=== PATIENT | female | born 1980 | race American Indian/Alaskan Native ===

== ENCOUNTER 2017-03-03 22:46 | Emergency (ER) | payer MEDICAID, OTHER ==
[~2017-03-03] VITALS: Ht 157.5 cm; Wt 83.6 kg
[~2017-03-03 22:46] MED LIST: AMOX1TAB64 PO; CEPH-376 PO; DULO60CA7 PO; LACT1CAP24 PO; OXYC-302 PO; OXYC5TAB3 PO; POLY17PO5 PO; PROP10TA PO
[2017-03-04] MEDS ORDERED: KETOROLAC 30 MG/1 ML ONE (00:54)
[2017-03-04] MEDS ORDERED: MORPHINE SULFATE 4 MG/ML, 1ML ONE (00:54)
[2017-03-04] MEDS ORDERED: KETOROLAC 30 MG/1 ML IVPush ONE (01:00)
[2017-03-04] MEDS ORDERED: SODIUM CHLORIDE FLUSH 10ML SYR IVF ONE (01:00)
[2017-03-04] MEDS ORDERED: MORPHINE SULFATE 4 MG/ML, 1ML IVPush PRN (01:00)
[2017-03-04 01:37] LABS: HCG UR OBC PASS
[2017-03-04 01:39] LABS: BLOOD UREA NITROGEN 8 mg/dL (7-18)
[2017-03-04 02:33] VITALS: BP 114/69
[2017-03-04] MEDS ORDERED: DOXYCYCLINE 100MG TABLET PO ONE (03:00)
== END 2017-03-04 03:34 | disposition home or self-care (01) ==
LOC: ED 23:59
DX: N64.4 Mastodynia (principal)
CPT/HCPCS: 36415; 76642; 80048; 81001; 81025; 82040; 85025; 87086; 96374; 96375; 99285; J1885

== ENCOUNTER 2017-05-25 12:55 | Observation (INO) | payer MEDICAID ==
[~2017-05-25] VITALS: Ht 157.5 cm; Wt 90.5 kg
[2017-05-25 13:36] LABS: HEMATOCRIT 41.2 % (34.6-47.8); HEMOGLOBIN 13.9 g/dL (11.7-16.4)
[2017-05-25] MEDS ORDERED: ONDANSETRON 2MG/ML, 2ML ONE ×2 (14:09→19:29)
[2017-05-25] MEDS ORDERED: MORPHINE SULFATE 4 MG/ML, 1ML ONE ×3 (14:09→17:41)
[2017-05-25] MEDS: MORPHINE SULFATE 4 MG/ML, 1ML IVPush PRN ×2 (14:18→15:13)
[2017-05-25] MEDS ORDERED: ONDANSETRON 2MG/ML, 2ML IVPush ONE (14:30)
[2017-05-25] MEDS ORDERED: SODIUM CHLORIDE FLUSH 10ML SYR IVF ONE (14:30)
[2017-05-25] MEDS ORDERED: CEFAZOLIN PMX 1GM/50ML 50 ML IV ONE (18:00)
[2017-05-25] MEDS ORDERED: morphine SULFATE 10 MG/ML, 1ML IVPush ONE ×2 (18:00)
[2017-05-25] MEDS ORDERED: CEFAZOLIN 1,000 MG ONE ×2 (18:04→19:29)
[2017-05-25] MEDS ORDERED: CEFAZOLIN PMX 1GM/50ML 50 ML ONE (18:05)
[2017-05-25] MEDS ORDERED: KETOROLAC 30 MG/1 ML ONE (19:29)
[2017-05-25] MEDS ORDERED: MIDAZOLAM 1 MG/ML, 2ML ONE (19:29)
[2017-05-25] MEDS ORDERED: PROPOFOL 10 MG/ML, 20ML ONE (19:29)
[2017-05-25] MEDS ORDERED: FENTANYL PF 100 MCG/2ML ONE ×3 (19:29→20:09)
[2017-05-25] MEDS ORDERED: OXYcodone 5 MG/5 ML ORAL.SOL UDC PO PRN (20:00)
[2017-05-25] MEDS ORDERED: LABETALOL 5MG/ML, 20ML IV PRN (20:00)
[2017-05-25] MEDS ORDERED: EPHEDRINE 50 MG/ML, 1ML IVPush PRN (20:00)
[2017-05-25] MEDS ORDERED: MEPERIDINE/PF 25MG/0.5ML IVPush PRN (20:00)
[2017-05-25] MEDS ORDERED: hydrALAzine 20 MG/ML, 1ML IV PRN (20:00)
[2017-05-25] MEDS ORDERED: METOPROLOL 1 MG/ML, 5ML IV PRN (20:00)
[2017-05-25] MEDS ORDERED: ACETAMINOPHEN 325 MG TABLET PO PRN ×2 (20:00→23:45)
[2017-05-25] MEDS ORDERED: ALBUTEROL SULFATE 2.5 MG/3 ML NPPB PRN (20:00)
[2017-05-25] MEDS ORDERED: ONDANSETRON 2MG/ML, 2ML IVPush PRN (20:00)
[2017-05-25] MEDS ORDERED: OXYcodone 5 MG/5 ML ORAL.SOL UDC ONE (20:09)
[2017-05-25] MEDS: FENTANYL PF 100 MCG/2ML IV PRN ×2 (20:10→20:22)
[2017-05-25] MEDS ORDERED: HYDROmorphone 1 MG/ML, 1ML ONE (20:30)
[2017-05-25] MEDS: HYDROmorphone 1 MG/ML, 1ML IV PRN ×3 (20:35→23:49)
[2017-05-25] MEDS ORDERED: ENALAPRILAT 1.25 MG/ML, 2ML IV PRN (23:45)
[2017-05-25] MEDS ORDERED: ONDANSETRON 2MG/ML, 2ML IV PRN (23:45)
[2017-05-25] MEDS ORDERED: LORazepam 1MG TABLET PO PRN (23:45)
[2017-05-25] MEDS ORDERED: ACETAMINOPHEN 650 MG SUPP PR PRN (23:45)
[2017-05-25] MEDS ORDERED: LORazepam 2 MG/ML, 1ML IV PRN (23:45)
[2017-05-25] MEDS ORDERED: DIPHENHYDRAMINE 25 MG CAPSULE PO PRN (23:45)
[2017-05-25] MEDS ORDERED: DIPHENHYDRAMINE 50 MG/ML, 1ML IV PRN (23:45)
[2017-05-26] VITALS: BP 129/85
[2017-05-26] MEDS: OXYcodone 5 MG/5 ML ORAL.SOL UDC PO PRN ×6 (00:27→22:06)
[2017-05-26 01:12] VITALS: BP 127/76
[2017-05-26] MEDS: HYDROmorphone 1 MG/ML, 1ML IV PRN ×7 (01:58→23:31)
[2017-05-26] MEDS ORDERED: CEFAZOLIN PMX 2GM/100ML 100 ML IVPB SCH (03:00)
[2017-05-26 05:44] LABS: HEMATOCRIT 40.5 % (34.6-47.8); HEMOGLOBIN 13.6 g/dL (11.7-16.4); WHITE BLOOD COUNT 10.2 x10^3/uL (3.4-10)
[2017-05-26] MEDS: HEPARIN 5,000 UNITS/ML, 1ML SQ SCH ×3 (06:07→22:00)
[2017-05-26 06:49] VITALS: BP 131/83
[2017-05-26] MEDS ORDERED: CEFAZOLIN PMX 2GM/50ML 50 ML IVPB SCH ×2 (10:00→11:00)
[2017-05-26] MEDS: KETOROLAC 30 MG/1 ML IV PRN ×2 (11:35→19:40)
[2017-05-26 13:47] VITALS: BP 119/79
[2017-05-26 19:55] VITALS: BP 135/68
[2017-05-27 01:50] VITALS: BP 116/74
[2017-05-27] MEDS: KETOROLAC 30 MG/1 ML IV PRN ×2 (02:37→09:08)
[2017-05-27] MEDS: HYDROmorphone 1 MG/ML, 1ML IV PRN ×3 (02:37→10:35)
[2017-05-27] MEDS: OXYcodone 5 MG/5 ML ORAL.SOL UDC PO PRN ×3 (04:04→15:06)
[2017-05-27] MEDS: HEPARIN 5,000 UNITS/ML, 1ML SQ SCH (04:58)
[2017-05-27] MEDS ORDERED: CEFAZOLIN PMX 2GM/50ML 50 ML IVPB SCH (06:00)
[2017-05-27 06:57] VITALS: BP 126/85
[2017-05-27] MEDS ORDERED: OXYC-302 PO (15:17)
[2017-05-27] MEDS ORDERED: CEPH-368 PO (15:17)
== END 2017-05-27 15:32 | disposition home or self-care (01) ==
LOC: ED 16:12 → SUATTDRO 18:04 → 3NE 22:42 → DCLOUNGE 05-27 15:10
PROVIDERS: ADMIT Surgery; ATTEND Surgery
DX: N61.1 Abscess of the breast and nipple (principal); N63 Unspecified lump in breast
CPT/HCPCS: 19020; 36415; 76642; 84703; 85025; 87070; 87075; 87176; 87205; 96365; 96366; 96372; 96375; 96376; 99285; G0378; J0690; J1170; J1644; J1885; J2250; J2270; J2405; J2704; J3010

== ENCOUNTER 2017-07-14 12:18 | Emergency (ER) | payer MEDICAID ==
[~2017-07-14] VITALS: Ht 157.5 cm; Wt 88.2 kg
[~2017-07-14 12:18] MED LIST changes: +CEPH-368 PO
[2017-07-14 12:43] VITALS: BP 133/56
[2017-07-14] MEDS ORDERED: OXYcodone/APAP 5/325MG TABLET PO ONE (13:00)
[2017-07-14 13:13] LABS: HEMATOCRIT 41.4 % (34.6-47.8); HEMOGLOBIN 13.9 g/dL (11.7-16.4); WHITE BLOOD COUNT 10.8 x10^3/uL (3.4-10)
[2017-07-14 13:23] LABS: BLOOD UREA NITROGEN 10 mg/dL (7-18)
[2017-07-14] MEDS ORDERED: OXYcodone/APAP 5/325MG TABLET ONE (13:39)
== END 2017-07-14 14:42 | disposition home or self-care (01) ==
LOC: ED 12:32
DX: R07.9 Chest pain, unspecified (principal); N61.1 Abscess of the breast and nipple
CPT/HCPCS: 36415; 80048; 82040; 85025; 87324; 89055; 99284

== ENCOUNTER 2017-09-03 20:46 | Emergency (ER) | payer MEDICAID ==
[~2017-09-03] VITALS: Ht 157.5 cm; Wt 84.1 kg
[2017-09-03 20:50] VITALS: BP 148/79
[2017-09-03] MEDS ORDERED: OXYcodone/APAP 5/325MG TABLET PO ONE (23:00)
[2017-09-03] MEDS ORDERED: OXYcodone/APAP 5/325MG TABLET ONE (23:19)
[2017-09-04] MEDS ORDERED: OXYcodone/APAP 5/325MG TABLET PO ONE (00:30)
[2017-09-04] MEDS ORDERED: DOXYCYCLINE 100MG TABLET PO ONE (00:30)
[2017-09-04] MEDS ORDERED: DOXYCYCLINE 100MG TABLET ONE (00:34)
[2017-09-04] MEDS ORDERED: OXYcodone/APAP 5/325MG TABLET ONE (00:39)
== END 2017-09-04 01:17 | disposition home or self-care (01) ==
LOC: ED 23:37
DX: N64.4 Mastodynia (principal); R11.2 Nausea with vomiting, unspecified; R19.7 Diarrhea, unspecified
CPT/HCPCS: 76642; 99284

== ENCOUNTER 2018-10-22 10:29 | Inpatient (IN) | payer MEDICAID ==
[~2018-10-22] VITALS: Ht 157.5 cm; Wt 89.1 kg
[~2018-10-22 10:29] MED LIST changes: -PROP10TA PO; +PROP10TA16 PO
[2018-10-22] MEDS ORDERED: FENTANYL/BUPIV./NS/PF 250 ML EPIDCONT SCH (11:04)
[2018-10-22] MEDS ORDERED: AMPICILLIN 2 GM in SODIUM CHLORIDE 0.9% 100 ML IVPB ONE (11:05)
[2018-10-22] MEDS ORDERED: OXYTOCIN 30U/ 0.9% NaCL 500ML 500 ML IV ONE (11:05)
[2018-10-22] MEDS ORDERED: LIDOCAINE 1%, 20ML ONE (11:27)
[2018-10-22] MEDS ORDERED: OXYTOCIN 30U/ 0.9% NaCL 500ML 500 ML ONE ×2 (11:27→22:03)
[2018-10-22] MEDS ORDERED: NEWBORN KIT ONE (11:27)
[2018-10-22] MEDS ORDERED: MISOPROSTOL 200 MCG TABLET ONE (11:27)
[2018-10-22] MEDS ORDERED: FENTANYL PF 100 MCG/2ML ONE (11:27)
[2018-10-22 11:30] LABS: BASOPHILS # (AUTO) 0.02 x10^3/uL (0-0.1); BASOPHILS % (AUTO) 0 % (0-1); EOSINOPHILS # (AUTO) 0.01 x10^3/uL (0-0.4); EOSINOPHILS % (AUTO) 0 % (1-7); LYMPHOCYTES # (AUTO) 1.23 x10^3/uL (1-3.4); LYMPHOCYTES % (AUTO) 14 % (22-44); MD NO; MEAN CORPUSCULAR HEMOGLOBIN 27.7 pg (27.0-34.8); MEAN CORPUSCULAR HGB CONC 33.1 g/dL (32.4-35.8); MEAN CORPUSCULAR VOLUME 83.8 fL (80-100); MEAN PLATELET VOLUME 9.4 fL (7.4-10.4); MONOCYTES # (AUTO) 0.38 x10^3/uL (0.2-0.8); MONOCYTES % (AUTO) 4 % (2-9); NEUTROPHILS # (AUTO) 7.28 x10^3/uL (1.8-6.8); NEUTROPHILS % (AUTO) 82 % (42-75); PLATELET COUNT 231 x10^3/uL (130-400); RED BLOOD COUNT 4.41 x10^6/uL (3.82-5.3); RED CELL DISTRIBUTION WIDTH 14.4 % (9.6-15.2)
[2018-10-22] MEDS ORDERED: FENTANYL PF 100 MCG/2ML IV PRN (11:30)
[2018-10-22] MEDS ORDERED: FENTANYL PF 100 MCG/2ML IVPush PRN (11:30)
[2018-10-22] MEDS ORDERED: ONDANSETRON 2MG/ML, 2ML IVPush PRN (11:30)
[2018-10-22] MEDS ORDERED: LACTATED RINGERS 1,000 ML IVBOLUS PRN (11:30)
[2018-10-22] MEDS ORDERED: CALCIUM CARBONATE 500 MG TAB.CHEW PO PRN (11:30)
[2018-10-22] MEDS ORDERED: FENTANYL PF 500 MCG, BUPIVACAINE/PF 0.5%, 30ML 62.5 ML in SODIUM CHLORIDE 0.9% 177.5 ML EPIDCONT SCH (12:00)
[2018-10-22] MEDS ORDERED: BUPIVACAINE 0.25% ONE (12:21)
[2018-10-22] MEDS: LACTATED RINGERS 1,000 ML IV SCH ×5 (12:30→22:00)
[2018-10-22] MEDS ORDERED: LIDOCAINE/PF 1.5%-EPI 1:200K, 30ML ONE (12:58)
[2018-10-22] MEDS ORDERED: OXYTOCIN 30U/ 0.9% NaCL 500ML 500 ML IV PRN (13:52)
[2018-10-22] MEDS: AMPICILLIN 1 GM in SODIUM CHLORIDE 0.9% 100 ML IVPB SCH ×2 (15:41→19:22)
[2018-10-22] MEDS ORDERED: ACETAMINOPHEN 325 MG TABLET ONE (18:23)
[2018-10-22] MEDS ORDERED: ACETAMINOPHEN 325 MG TABLET PO PRN ×2 (18:30→21:00)
[2018-10-22] MEDS: D5%-LACTATED RINGERS 1,000 ML IV SCH ×2 (19:05→19:22)
[2018-10-22] MEDS ORDERED: OXYcodone/APAP 5/325MG TABLET ONE (20:55)
[2018-10-22] MEDS: OXYcodone/APAP 5/325MG TABLET PO PRN (20:56)
[2018-10-22] MEDS ORDERED: ONDANSETRON 2MG/ML, 2ML IV PRN (21:00)
[2018-10-22] MEDS ORDERED: METHYLERGONOVINE 0.2 MG/ML IM PRN (21:00)
[2018-10-22] MEDS ORDERED: MISOPROSTOL 200 MCG TABLET PR PRN (21:00)
[2018-10-22] MEDS: OXYTOCIN 30U/ 0.9% NaCL 500ML 500 ML IV SCH (22:11)
[2018-10-22 23:00] VITALS: BP 105/65
[2018-10-22] MEDS: IBUPROFEN 600 MG TABLET PO PRN (23:22)
[2018-10-23 00:30] VITALS: BP 113/67
[2018-10-23] MEDS: OXYcodone/APAP 5/325MG TABLET PO PRN ×5 (01:08→20:59)
[2018-10-23 04:20] VITALS: BP 105/65
[2018-10-23 05:35] LABS: BASOPHILS # (AUTO) 0.02 x10^3/uL (0-0.1); BASOPHILS % (AUTO) 0 % (0-1); EOSINOPHILS # (AUTO) 0.02 x10^3/uL (0-0.4); EOSINOPHILS % (AUTO) 0 % (1-7); LYMPHOCYTES # (AUTO) 1.93 x10^3/uL (1-3.4); LYMPHOCYTES % (AUTO) 16 % (22-44); MD NO; MEAN CORPUSCULAR HGB CONC 33.3 g/dL (32.4-35.8); MEAN CORPUSCULAR VOLUME 84.1 fL (80-100); MEAN PLATELET VOLUME 9.6 fL (7.4-10.4); MONOCYTES # (AUTO) 0.73 x10^3/uL (0.2-0.8); MONOCYTES % (AUTO) 6 % (2-9); NEUTROPHILS # (AUTO) 9.48 x10^3/uL (1.8-6.8); NEUTROPHILS % (AUTO) 78 % (42-75); PLATELET COUNT 196 x10^3/uL (130-400); RED BLOOD COUNT 3.74 x10^6/uL (3.82-5.3); RED CELL DISTRIBUTION WIDTH 14.6 % (9.6-15.2)
[2018-10-23] MEDS: OXYTOCIN 30U/ 0.9% NaCL 500ML 500 ML IV SCH ×2 (06:45→16:45)
[2018-10-23] MEDS: LACTATED RINGERS 1,000 ML IV SCH ×2 (06:58→18:00)
[2018-10-23] MEDS: DOCUSATE 100 MG CAPSULE PO PRN ×2 (07:24→20:59)
[2018-10-23] MEDS: PRENATAL VIT/IRON/FA 1 EACH TABLET PO SCH (07:24)
[2018-10-23] MEDS: IBUPROFEN 600 MG TABLET PO PRN ×3 (07:25→23:05)
[2018-10-23 07:35] VITALS: BP 100/61
[2018-10-23] MEDS ORDERED: MAALOX/HYOSCYAMINE/LIDOCAINE 45 ML BTL PO ONE (11:00)
[2018-10-23 12:13] VITALS: BP 110/66
[2018-10-23] MEDS ORDERED: morphine SULFATE 10 MG/ML, 1ML ONE (13:25)
[2018-10-23] MEDS ORDERED: MORPHINE SULFATE 4 MG/ML, 1ML IVPush ONE (13:30)
[2018-10-23 13:40] LABS: BASOPHILS # (AUTO) 0.04 x10^3/uL (0-0.1); BASOPHILS % (AUTO) 0 % (0-1); EOSINOPHILS # (AUTO) 0.05 x10^3/uL (0-0.4); EOSINOPHILS % (AUTO) 1 % (1-7); LYMPHOCYTES # (AUTO) 1.93 x10^3/uL (1-3.4); LYMPHOCYTES % (AUTO) 18 % (22-44); MD NO; MEAN CORPUSCULAR HEMOGLOBIN 27.7 pg (27.0-34.8); MEAN CORPUSCULAR HGB CONC 32.8 g/dL (32.4-35.8); MEAN CORPUSCULAR VOLUME 84.4 fL (80-100); MEAN PLATELET VOLUME 9.2 fL (7.4-10.4); MONOCYTES # (AUTO) 0.57 x10^3/uL (0.2-0.8); MONOCYTES % (AUTO) 5 % (2-9); NEUTROPHILS % (AUTO) 76 % (42-75); PLATELET COUNT 205 x10^3/uL (130-400); RED BLOOD COUNT 3.76 x10^6/uL (3.82-5.3)
[2018-10-23 16:02] VITALS: BP 105/62
[2018-10-23 19:58] VITALS: BP 115/67
[2018-10-24] MEDS: OXYcodone/APAP 5/325MG TABLET PO PRN ×3 (01:26→16:51)
[2018-10-24] MEDS ORDERED: DIPH,PERTUSS(ACELL),TET VAC/PF NC IM-VACC ONE ×2 (01:30→18:00)
[2018-10-24] MEDS: OXYTOCIN 30U/ 0.9% NaCL 500ML 500 ML IV SCH ×2 (02:45→12:45)
[2018-10-24] MEDS: LACTATED RINGERS 1,000 ML IV SCH ×2 (04:00→14:00)
[2018-10-24] MEDS: IBUPROFEN 600 MG TABLET PO PRN ×2 (05:28→16:50)
[2018-10-24 07:50] VITALS: BP 118/81
[2018-10-24] MEDS: PRENATAL VIT/IRON/FA 1 EACH TABLET PO SCH (08:10)
[2018-10-24] MEDS: DOCUSATE 100 MG CAPSULE PO PRN (08:10)
[2018-10-24] MEDS ORDERED: MEASLES,MUMPS&RUBELLA VACC/PF 0.5 ML SQ-VACC ONE ×2 (17:05→18:30)
[2018-10-24] MEDS ORDERED: IBUP-1222 PO (18:22)
== END 2018-10-24 18:45 | disposition home or self-care (01) | DRG 807 ==
LOC: LDOP 10:29 → LDIP 11:05 → 2NW 22:54
PROVIDERS: ADMIT Obstetrics & Gynecology; ATTEND Obstetrics & Gynecology
PROC: 10E0XZZ Delivery of Products of Conception, External Approach (ICD-10-PCS; principal; 2018-10-22)
PROC: 10907ZC Drainage of Amniotic Fluid, Therapeutic from Products of Conception, Via Natural or Artificial Opening (ICD-10-PCS; 2018-10-22)
DX: O99.824 Streptococcus B carrier state complicating childbirth (principal); Z37.0 Single live birth; Z3A.40 40 weeks gestation of pregnancy; Z83.3 Family history of diabetes mellitus
CPT/HCPCS: 36415; 74022; J7121; 85025; 86850; 86900; 90715; G0378; J0290; J3010; J3490; J2590; J7120

== ENCOUNTER 2020-11-23 23:17 | Outpatient (CLI) | payer MEDICAID ==
[~2020-11-23 23:17] MED LIST changes: +IBUP-1222 PO; -OXYC-302 PO; +OXYC1TAB14 PO; -OXYC5TAB3 PO; +OXYC5TAB98 PO
[2020-11-23 23:55] LABS: BASOPHILS % (AUTO) 1 % (0-1); EOSINOPHILS % (AUTO) 1 % (1-7); LYMPHOCYTES % (AUTO) 27 % (22-44); MEAN CORPUSCULAR HGB CONC 33.2 g/dL (32.4-35.8); MEAN PLATELET VOLUME 8.8 fL (7.4-10.4); MONOCYTES % (AUTO) 7 % (2-9); NEUTROPHILS % (AUTO) 64 % (42-75); PLATELET COUNT 255 x10^3/uL (130-400); RED BLOOD COUNT 4.13 x10^6/uL (3.82-5.3); RED CELL DISTRIBUTION WIDTH 15.4 % (9.6-15.2)
[2020-11-23 23:57] LABS: MD NO
[2020-11-24 00:01] LABS: MICROSCOPIC INDICATED
[2020-11-24 00:07] LABS: ALANINE AMINOTRANSFERASE 13 U/L (12-78); ALBUMIN 2.3 g/dL (3.4-5.0); ANION GAP 7 mmol/L (5-15); CHLORIDE 109 mmol/L (98-107); CREATININE 0.49 mg/dL (0.55-1.02)
[2020-11-24 00:09] LABS: ALKALINE PHOSPHATASE 148 U/L (45-117); BILIRUBIN,TOTAL 0.2 mg/dL (0.2-1.0); TOTAL PROTEIN 6.2 g/dL (6.4-8.2)
[2020-11-24 00:13] LABS: CREATININE,URINE RANDOM 52.4 mg/dL
== END 2020-11-24 00:57 | disposition home or self-care (01) ==
LOC: LDOP 23:17
PROVIDERS: ATTEND Obstetrics & Gynecology
DX: O09.93 Supervision of high risk pregnancy, unspecified, third trimester (principal); O16.3 Unspecified maternal hypertension, third trimester; Z3A.36 36 weeks gestation of pregnancy
CPT/HCPCS: 36415; 59025; 80053; 81001; 82570; 84156; 84550; 85025

== ENCOUNTER 2020-12-03 10:56 | Outpatient (CLI) | payer MEDICAID ==
[~2020-12-03] VITALS: Ht 157.5 cm; Wt 98.0 kg
[2020-12-03 11:23] VITALS: BP 106/59
[2020-12-03] MEDS ORDERED: PREN1TAB60 PO (12:53)
== END 2020-12-03 13:27 | disposition home or self-care (01) ==
LOC: LDOP 10:56
PROVIDERS: ATTEND Obstetrics & Gynecology
DX: O09.523 Supervision of elderly multigravida, third trimester (principal); O98.813 Other maternal infectious and parasitic diseases complicating pregnancy, third trimester; B95.1 Streptococcus, group B, as the cause of diseases classified elsewhere; R10.9 Unspecified abdominal pain; Z3A.37 37 weeks gestation of pregnancy
CPT/HCPCS: 59025

== ENCOUNTER 2020-12-09 12:39 | Inpatient (IN) | payer MEDICAID ==
[~2020-12-09] VITALS: Ht 157.5 cm; Wt 94.0 kg
[~2020-12-09 12:39] MED LIST changes: +PREN1TAB60 PO
[2020-12-15] MEDS ORDERED: NEWBORN KIT ONE (22:40)
[2020-12-15] MEDS ORDERED: OXYTOCIN 30U/ 0.9% NaCL 500ML 500 ML ONE (22:41)
[2020-12-15] MEDS ORDERED: TERBUTALINE 1 MG/ML, 1ML SQ PRN (23:00)
[2020-12-15] MEDS ORDERED: PENICILLIN GK 5,000,000 UNITS in DEXTROSE 5% 100 ML IVPB ONE (23:00)
[2020-12-15] MEDS ORDERED: OXYTOCIN 30U/ 0.9% NaCL 500ML 500 ML IV ONE (23:00)
[2020-12-15] MEDS ORDERED: SODIUM CHLORIDE FLUSH 10ML SYR IVF PRN (23:00)
[2020-12-15] MEDS ORDERED: FENTANYL PF 100 MCG/2ML IVPush PRN (23:00)
[2020-12-15] MEDS ORDERED: CALCIUM CARBONATE 500 MG TAB.CHEW PO PRN (23:00)
[2020-12-15] MEDS ORDERED: D5%-LACTATED RINGERS 1,000 ML IV SCH (23:00)
[2020-12-15] MEDS ORDERED: OXYTOCIN 30U/ 0.9% NaCL 500ML 500 ML IV PRN (23:00)
[2020-12-15] MEDS ORDERED: FENTANYL PF 100 MCG/2ML IV PRN (23:00)
[2020-12-15] MEDS ORDERED: TERBUTALINE 1 MG/ML, 1ML IVPush PRN (23:00)
[2020-12-15] MEDS ORDERED: ONDANSETRON 2MG/ML, 2ML IVPush PRN (23:00)
[2020-12-15 23:18] LABS: BASOPHILS % (AUTO) 0 % (0-1); EOSINOPHILS % (AUTO) 1 % (1-7); LYMPHOCYTES % (AUTO) 26 % (22-44); MEAN CORPUSCULAR HEMOGLOBIN 26.8 pg (27.0-34.8); MEAN CORPUSCULAR HGB CONC 32.8 g/dL (32.4-35.8); MEAN PLATELET VOLUME 9.5 fL (7.4-10.4); MONOCYTES % (AUTO) 7 % (2-9); NEUTROPHILS % (AUTO) 66 % (42-75); PLATELET COUNT 164 x10^3/uL (130-400); RED BLOOD COUNT 4.23 x10^6/uL (3.82-5.3)
[2020-12-15 23:20] LABS: MD NO
[2020-12-15] MEDS ORDERED: PLEASE ENTER HEIGHT AND WEIGHT MC SCH (23:30)
[2020-12-16] MEDS: MISOPROSTOL 25 MCG TABLET VG PRN ×2 (00:42→05:15)
[2020-12-16] MEDS: PENICILLIN GK 2,500,000 UNITS in DEXTROSE 5% 100 ML IVPB SCH ×2 (06:09→09:55)
[2020-12-16] MEDS: LACTATED RINGERS 1,000 ML IV SCH ×3 (08:30→13:54)
[2020-12-16] MEDS ORDERED: BUPIVACAINE 0.25% ONE (08:58)
[2020-12-16] MEDS ORDERED: FENTANYL/BUPIV./NS/PF 250 ML EPIDCONT ONE (08:58)
[2020-12-16] MEDS ORDERED: EPHEDRINE 50 MG/ML, 1ML IVPush PRN (09:30)
[2020-12-16] MEDS ORDERED: NALOXONE 0.4 MG/ML, 1ML IVPush PRN (09:30)
[2020-12-16] MEDS ORDERED: ONDANSETRON 2MG/ML, 2ML IVPush PRN (09:30)
[2020-12-16] MEDS ORDERED: FENTANYL/BUPIV./NS/PF 250 ML EPIDCONT SCH (09:30)
[2020-12-16] MEDS ORDERED: DIPHENHYDRAMINE 50 MG/ML, 1ML IVPush PRN (09:30)
[2020-12-16] MEDS ORDERED: LACTATED RINGERS 1,000 ML IVBOLUS PRN (09:30)
[2020-12-16] MEDS ORDERED: MISOPROSTOL 200 MCG TABLET PR PRN (13:30)
[2020-12-16] MEDS ORDERED: RHOGAM FROM BLOOD BANK 1 NOTE EA IM/IV ONE (13:30)
[2020-12-16] MEDS ORDERED: SIMETHICONE 80 MG CHEW TAB PO PRN (13:30)
[2020-12-16] MEDS ORDERED: ONDANSETRON 2MG/ML, 2ML IV PRN (13:30)
[2020-12-16] MEDS ORDERED: ACETAMINOPHEN 325 MG TABLET PO PRN ×2 (13:30)
[2020-12-16] MEDS ORDERED: OXYcodone/APAP 5/325MG TABLET PO PRN (13:30)
[2020-12-16] MEDS ORDERED: CALCIUM CARBONATE 500 MG TAB.CHEW PO PRN (13:30)
[2020-12-16] MEDS ORDERED: IBUPROFEN 800 MG TABLET PO PRN (13:30)
[2020-12-16] MEDS ORDERED: MAGNESIUM HYDROXIDE 8%, 30ML UDC PO PRN (13:30)
[2020-12-16] MEDS ORDERED: DIPH,PERTUSS(ACELL),TET VAC/PF NC IM-VACC PRN (13:30)
[2020-12-16] MEDS ORDERED: IBUPROFEN 600 MG TABLET ONE (13:45)
[2020-12-16] MEDS: OXYTOCIN 30U/ 0.9% NaCL 500ML 500 ML IV SCH ×2 (13:53→23:30)
[2020-12-16] MEDS: IBUPROFEN 600 MG TABLET PO PRN ×2 (13:54→23:27)
[2020-12-16 14:34] VITALS: BP 119/74
[2020-12-16] MEDS: OXYcodone/APAP 5/325MG TABLET PO PRN ×3 (14:59→23:26)
[2020-12-16 16:10] VITALS: BP 114/65
[2020-12-16 19:00] VITALS: BP 110/65
[2020-12-16] MEDS: DOCUSATE 100 MG CAPSULE PO PRN (19:21)
[2020-12-16 20:25] LABS: BASOPHILS % (AUTO) 0 % (0-1); EOSINOPHILS % (AUTO) 1 % (1-7); LYMPHOCYTES % (AUTO) 20 % (22-44); MEAN CORPUSCULAR HEMOGLOBIN 27.1 pg (27.0-34.8); MEAN CORPUSCULAR HGB CONC 32.9 g/dL (32.4-35.8); MEAN PLATELET VOLUME 9.7 fL (7.4-10.4); MONOCYTES % (AUTO) 6 % (2-9); NEUTROPHILS % (AUTO) 73 % (42-75); PLATELET COUNT 163 x10^3/uL (130-400); RED BLOOD COUNT 3.84 x10^6/uL (3.82-5.3); RED CELL DISTRIBUTION WIDTH 16.4 % (9.6-15.2)
[2020-12-16 20:26] LABS: MD NO
[2020-12-17 00:05] VITALS: BP 113/67
[2020-12-17] MEDS: OXYcodone/APAP 5/325MG TABLET PO PRN ×3 (03:31→18:22)
[2020-12-17 03:40] VITALS: BP 103/62
[2020-12-17 07:19] VITALS: BP 117/69
[2020-12-17] MEDS: PRENATAL VIT/IRON/FA 1 EACH TABLET PO SCH (07:23)
[2020-12-17] MEDS: IBUPROFEN 600 MG TABLET PO PRN ×3 (07:23→20:44)
[2020-12-17] MEDS: DOCUSATE 100 MG CAPSULE PO PRN ×2 (07:23→20:44)
[2020-12-17] MEDS: OXYTOCIN 30U/ 0.9% NaCL 500ML 500 ML IV SCH ×2 (09:30→19:30)
[2020-12-17 20:00] VITALS: BP 118/70
[2020-12-18] MEDS: OXYcodone/APAP 5/325MG TABLET PO PRN ×3 (00:05→07:47)
[2020-12-18] MEDS: IBUPROFEN 600 MG TABLET PO PRN (02:44)
[2020-12-18] MEDS: OXYTOCIN 30U/ 0.9% NaCL 500ML 500 ML IV SCH (05:30)
[2020-12-18] MEDS: PRENATAL VIT/IRON/FA 1 EACH TABLET PO SCH (07:47)
[2020-12-18] MEDS: DOCUSATE 100 MG CAPSULE PO PRN (07:47)
[2020-12-18 07:52] VITALS: BP 114/75
[2020-12-18] MEDS ORDERED: IBUP-1222 PO (10:33)
[2020-12-18] MEDS ORDERED: DOCU-131 PO (10:33)
[2020-12-18] MEDS ORDERED: OXYC1TAB14 PO (10:34)
== END 2020-12-18 13:55 | disposition home or self-care (01) | DRG 560 ==
LOC: MERGE 12-15 22:15 → LDIP 12-15 22:15 → 2NW 12-16 14:26
PROVIDERS: ADMIT Obstetrics & Gynecology; ATTEND Obstetrics & Gynecology
PROC: 10E0XZZ Delivery of Products of Conception, External Approach (ICD-10-PCS; principal; 2020-12-16)
PROC: 0KQM0ZZ Repair Perineum Muscle, Open Approach (ICD-10-PCS; 2020-12-16)
PROC: 10907ZC Drainage of Amniotic Fluid, Therapeutic from Products of Conception, Via Natural or Artificial Opening (ICD-10-PCS; 2020-12-16)
PROC: 10H07YZ Insertion of Other Device into Products of Conception, Via Natural or Artificial Opening (ICD-10-PCS; 2020-12-16)
PROC: 3E0R3BZ Introduction of Anesthetic Agent into Spinal Canal, Percutaneous Approach (ICD-10-PCS; 2020-12-16)
PROC: 00HU33Z Insertion of Infusion Device into Spinal Canal, Percutaneous Approach (ICD-10-PCS; 2020-12-16)
DX: O99.214 Obesity complicating childbirth (principal); E66.01 Morbid (severe) obesity due to excess calories; Z20.822 Contact with and (suspected) exposure to COVID-19; O70.1 Second degree perineal laceration during delivery; Z37.0 Single live birth; Z91.040 Latex allergy status
CPT/HCPCS: 36415; 85025; 86592; 86850; 86900; 87635; G0378; J2405; J2540; J2590; J3010; J7120

== ENCOUNTER 2021-01-12 03:06 | Emergency (ER) | payer MEDICAID ==
[~2021-01-12] VITALS: Ht 157.5 cm; Wt 85.5 kg
[~2021-01-12 03:06] MED LIST changes: +DOCU-131 PO
--- NOTE | 2021-01-12 03:30 | NUR ---
lab at bedside
[2021-01-12 03:45] LABS: BASOPHILS % (AUTO) 0 % (0-1); EOSINOPHILS % (AUTO) 2 % (1-7); LYMPHOCYTES % (AUTO) 27 % (22-44); MEAN CORPUSCULAR HEMOGLOBIN 26.5 pg (27.0-34.8); MEAN CORPUSCULAR HGB CONC 31.8 g/dL (32.4-35.8); MEAN PLATELET VOLUME 8.4 fL (7.4-10.4); MONOCYTES % (AUTO) 8 % (2-9); NEUTROPHILS % (AUTO) 63 % (42-75); PLATELET COUNT 244 x10^3/uL (130-400); RED BLOOD COUNT 4.63 x10^6/uL (3.82-5.3); RED CELL DISTRIBUTION WIDTH 17.9 % (9.6-15.2)
[2021-01-12 03:46] LABS: MD NO
[2021-01-12 03:54] LABS: ALANINE AMINOTRANSFERASE 18 U/L (12-78); ALBUMIN 3.1 g/dL (3.4-5.0); ANION GAP 7 mmol/L (5-15); CALCIUM 7.9 mg/dL (8.5-10.1); CHLORIDE 109 mmol/L (98-107); CREATININE 0.53 mg/dL (0.55-1.02)
[2021-01-12 03:58] LABS: ALKALINE PHOSPHATASE 100 U/L (45-117); BILIRUBIN,TOTAL 0.2 mg/dL (0.2-1.0); TOTAL PROTEIN 6.6 g/dL (6.4-8.2)
--- NOTE | 2021-01-12 04:37 | NUR ---
With standing moderate amount of bright red vaginal bleeding noted. erp to bedside
[2021-01-12 04:40] LABS: MICROSCOPIC AUTO
--- NOTE | 2021-01-12 05:18 | NUR ---
PATIENT UPDATED ON POC (AWAITING US RESULTS) VSS ON NIBP/POX
--- NOTE | 2021-01-12 05:47 | NUR ---
all testing resulted- placed up for recheck with erp
[2021-01-12 06:03] VITALS: BP 138/83
--- NOTE | 2021-01-12 06:05 | NUR ---
poc reviewed (ob f/u tmrw for definitive treatment), watch bleeding- return if needed. iron dense meal atleast 1 time/day
== END 2021-01-12 06:05 | disposition home or self-care (01) ==
LOC: ED 05:31
DX: N93.8 Other specified abnormal uterine and vaginal bleeding (principal); R10.2 Pelvic and perineal pain
CPT/HCPCS: 36415; 76856; 80053; 81001; 83690; 84702; 85025; 99284

== ENCOUNTER 2021-01-13 17:27 | Emergency (ER) | payer MEDICAID ==
[~2021-01-13] VITALS: Ht 157.5 cm; Wt 81.0 kg
--- NOTE | 2021-01-13 17:40 | NUR ---
PT PLACED IN HOSPITAL GOWN. PT ON VITALS MONITORS. MULTIPLE OBDULIA PADS PLACED UNDER PT PT IS ACTIVELY BLEEDING.
[2021-01-13 18:10] LABS: BASOPHILS % (AUTO) 0 % (0-1); EOSINOPHILS % (AUTO) 2 % (1-7); LYMPHOCYTES % (AUTO) 38 % (22-44); MD NO; MEAN CORPUSCULAR HEMOGLOBIN 26.9 pg (27.0-34.8); MEAN CORPUSCULAR HGB CONC 32.2 g/dL (32.4-35.8); MEAN PLATELET VOLUME 8.3 fL (7.4-10.4); MONOCYTES % (AUTO) 8 % (2-9); NEUTROPHILS % (AUTO) 52 % (42-75); PLATELET COUNT 230 x10^3/uL (130-400); RED BLOOD COUNT 4.22 x10^6/uL (3.82-5.3); RED CELL DISTRIBUTION WIDTH 17.7 % (9.6-15.2)
[2021-01-13 18:14] LABS: ALBUMIN 3.1 g/dL (3.4-5.0); ANION GAP 3 mmol/L (5-15); CALCIUM 7.9 mg/dL (8.5-10.1); CHLORIDE 110 mmol/L (98-107); CREATININE 0.54 mg/dL (0.55-1.02)
--- NOTE | 2021-01-13 18:29 | NUR ---
US AT BEDSIDE CURRENTLY
[2021-01-13] MEDS ORDERED: KETOROLAC 30 MG/1 ML ONE (19:12)
--- NOTE | 2021-01-13 19:20 | NUR ---
PT STATES HAS A HEAD ACHE AND FEEL NAUSEA ALSO.
[2021-01-13] MEDS ORDERED: KETOROLAC 30 MG/1 ML IVPush ONE (19:30)
[2021-01-13 20:00] VITALS: BP 119/72
--- NOTE | 2021-01-13 20:13 | NUR ---
Patient given discharge instructions and they have confirmed that they understand the instructions. Patient ambulatory with steady gait. No questions at time of discharge.
== END 2021-01-13 20:17 | disposition home or self-care (01) ==
LOC: ED 17:53
DX: O03.4 Incomplete spontaneous abortion without complication (principal); F17.200 Nicotine dependence, unspecified, uncomplicated
CPT/HCPCS: 36415; 76830; 80048; 82040; 84702; 85025; 96374; 99284; J1885